=== PATIENT | male | born 1945 | race African-American/Black ===

== ENCOUNTER → 2016-08-06 | Outpatient (CLI) | payer OTHER ==
--- NOTE | 2016-08-06 14:12 | DIAGNOSTIC IMAGING REPORT ---
PROCEDURE: MR LUMBAR SPINE W/O CONTRAST INDICATION: INTERVERTEBRAL LUMBAR DISC DISORDER W/MYELOPATHY TECHNIQUE: Noncontrast T1, T2, and STIR sagittal images. T1 and T2 axial images. COMPARISON: Lumbar spine x-ray 10/12/2010. FINDINGS: Grade 1 L1-2 retrolisthesis with moderate narrowing of the disc. There is also grade 1 L5-S1 retrolisthesis with desiccation of the disc. No acute fracture. Moderate degenerative changes with L4-5 desiccation of the disc. There are also mild reactive bone marrow edema of the L1-2 and L5-S1 endplates. Normal conus. Paraspinal soft tissues are unremarkable. Small T11-12 and T12-L1 disc bulges with mild spinal stenosis. L1-2: Moderate left posterior disc protrusion superimposed on a broad-based bulging disc with spur formation resulting in mild to moderate left foraminal stenosis. Short pedicles and moderate spinal stenosis. L2-3: Small broad-based disc bulge, more prominent in the left foramen, with mild to moderate left foraminal stenosis. Short pedicles with mild spinal stenosis. L3-4: Small broad-based disc bulge more prominent on the left, with mild facet arthropathy and spur formation resulting in mild right and mild to moderate left foraminal stenosis. Short pedicles with moderate spinal stenosis. L4-5: Large central disc herniation superimposed on a large broad-based disc bulge with spurring and mild facet arthropathy resulting in severe bilateral foraminal stenosis. There is also mild spinal stenosis. L5-S1: Large broad-based disc bulge/spur complex with mild facet arthropathy. There is resulting severe bilateral foraminal stenosis. There is no spinal stenosis. IMPRESSION: 1. Moderate degenerative changes with multilevel disc bulging 2. Spinal stenosis from T11-12 to L4-5 3. Mild to moderate left L1-2, L2-3 and L3-4 foraminal stenosis 4. Large L4-5 and L5-S1 disc bulges resulting in severe bilateral foraminal stenosis.
== END ==
LOC: MRI SRH 11:40
DX: M51.26 Other intervertebral disc displacement, lumbar region (principal); M51.27 Other intervertebral disc displacement, lumbosacral region; M48.05 Spinal stenosis, thoracolumbar region; M48.06 Spinal stenosis, lumbar region